=== PATIENT | male | born 1995 ===

== ENCOUNTER 2016-05-30 16:51 | Emergency (ER) | payer BC ==
[2016-05-30 16:59] VITALS: BP 162/74
--- NOTE | 2016-05-30 18:39 | ED ---
Throat Pain/Nasal Congestion - HPI Summary HPI Summary: 20 M presents with sore throat, cough, sinus congestion and headache for 5 days. He has a history of tonsil stones. His roommate was recently diagnosed with strept. He states he felt febrile yesterday. He admits to some nausea but denies any abdominal pain, vomiting or diarrhea. He denies any chest pain or SOB. He denies any difficulty swallowing or difficulty with his secretions. - History of Current Complaint Chief Complaint: EDUpperRespComplaint Time Seen by Provider: 05/30/16 17:49 - Allergies/Home Medications Allergies/Adverse Reactions: Allergies Allergy/AdvReac Type Severity Reaction Status Date / Time No Known Allergies Allergy Verified 05/30/16 16:59 Home Medications: Home Medications NK [No Home Medications Reported] 05/30/16 [History Confirmed 05/30/16] PMH/Surg Hx/FS Hx/Imm Hx Cardiovascular History: Denies: Hx Hypertension Respiratory History: Denies: Hx Asthma Infectious Disease History: Yes Infectious Disease History: Denies: Traveled Outside the [place] in Last 30 Days - Family History Known Family History: Negative: Cardiac Disease - Social History Alcohol Use: Rare Substance Use Type: Reports: None Smoking Status (MU): Unknown if Ever Smoked Review of Systems Negative: Fever Positive: Sore Throat, Nasal Discharge. Negative: Ear Ache Negative: Chest Pain Positive: Cough. Negative: Shortness Of Breath Positive: Nausea. Negative: Abdominal Pain, Vomiting All Other Systems Reviewed And Are Negative: Yes Physical Exam Triage Information Reviewed: Yes Vital Signs On Initial Exam: Initial Vitals Temp Pulse Resp BP Pulse Ox 99.5 F 96 17 162/74 99 05/30/16 16:57 05/30/16 16:57 05/30/16 16:57 05/30/16 16:57 05/30/16 16:57 Vital Signs Reviewed: Yes Appearance: Positive: Well-Appearing Skin: Positive: Warm, Dry Head/Face: Positive: Normal Head/Face Inspection Eyes: Positive: Normal, EOMI, MACHO, Conjunctiva Clear ENT: Positive: Normal ENT inspection, Pharyngeal erythema, TMs normal, Other - tonsil stone present on left tonsil. Negative: Tonsillar swelling, Tonsillar exudate, Trismus, Muffled/hoarse voice Neck: Positive: Supple, Nontender, No Lymphadenopathy Respiratory/Lung Sounds: Positive: Clear to Auscultation, Breath Sounds Present Cardiovascular: Positive: Normal, RRR Diagnostics - Vital Signs Vital Signs Temp Pulse Resp BP Pulse Ox 05/30/16 16:57 99.5 F 96 17 162/74 99 - Laboratory Lab Results: Lab Results 05/30/16 Range/Units 18:04 Group A Strep Rapid Negative (Negative) Lab Statement: Any lab studies that have been ordered have been reviewed, and results considered in the medical decision making process. EENT Course/Dx - Course Course Of Treatment: 20M presents with sore throat, productive cough, and sinus congestion for 5 days, roommate has strept. handling secretions well on exam, throat does not appear to be strept like has tonsil stone on left tonsil, no lymphadenopathy, lungs CTA do not suspect pneumonia, likely viral URI, rapid strept negative, explained results to patient, patient understands and agrees with plan - Differential Diagnoses Differential Diagnoses: Pharyngitis, URI/Bronchitis, Other - strept - Diagnoses Provider Diagnoses: Pharyngitis Discharge - Discharge Plan Condition: Good Disposition: HOME Patient Education Materials: Pharyngitis (ED) Referrals: [facility] HENRI Mulligan [Primary Care Provider] - Additional Instructions: Take Tylenol or ibuprofen for pain every 6 hours Use humidifier in room or can use warm water in bowls Can gargle salt water Can use cough drops or products such as cloraseptic spray Follow up with henri if no improvement in 5 days Return to ED if develop inability to swallow, difficulty breathing, or any new or worsening symptoms
== END 2016-05-30 18:59 | disposition home or self-care (01) ==
LOC: ED 16:51
DX: J02.9 Acute pharyngitis, unspecified (principal); R05 Cough; R11.0 Nausea
CPT/HCPCS: 87651; 99282

== ENCOUNTER 2016-12-10 21:37 | Emergency (ER) | payer SELFPAY ==
[2016-12-10 21:46] VITALS: BP 121/73
--- NOTE | 2016-12-10 21:47 | UC ---
Laceration HPI - HPI Summary HPI Summary: 21 YEAR OLD MALE PRESENTS WITH RIGHT THUMB PAD SUPERFICIAL LACERATION. - History Of Current Complaint Chief Complaint: UCLaceration Stated Complaint: THUMB LAC WC Time Seen by Provider: 12/10/16 21:46 Hx Obtained From: Patient Laceration Location: Finger - RIGHT THUMB Onset/Duration: Sudden Onset Severity: Moderate Pain Scale Used: 0-10 Numeric - 5 - Allergies/Home Medications Allergies/Adverse Reactions: Allergies Allergy/AdvReac Type Severity Reaction Status Date / Time No Known Allergies Allergy Verified 12/10/16 21:46 PMH/Surg Hx/FS Hx/Imm Hx Previously Healthy: Yes - Surgical History Surgical History: None - Family History Known Family History: Negative: Cardiac Disease - Social History Alcohol Use: Occasionally Substance Use Type: None Smoking Status (MU): Never Smoked Tobacco - Immunization History Most Recent Tetanus Shot: UNKNOWN Review of Systems Constitutional: Negative Skin: Other - RIGHT THUMB LACERATION Eyes: Negative ENT: Negative Respiratory: Negative Cardiovascular: Negative Gastrointestinal: Negative Genitourinary: Negative Motor: Negative Neurovascular: Negative Musculoskeletal: Negative Neurological: Negative Psychological: Negative All Other Systems Reviewed And Are Negative: Yes Physical Exam Triage Information Reviewed: Yes Appearance: Well-Appearing Vital Signs: Initial Vital Signs Temp 36.8 C 12/10/16 21:43 Pulse 78 12/10/16 21:43 Resp 16 12/10/16 21:43 BP 121/73 12/10/16 21:43 Pulse Ox 100 12/10/16 21:43 Eye Exam: Normal ENT Exam: Normal Dental Exam: Normal Neck exam: Normal Neck: Positive: 1 Respiratory Exam: Normal Cardiovascular Exam: Normal Abdominal Exam: Normal Musculoskeletal Exam: Normal Neurological Exam: Normal Psychological Exam: Normal Skin: Positive: Other - RIGHT THUMB LACERATION Laceration Repair - Laceration Repair 1 Description: Irregular Laceration Size After Repair: Length (cm) - 2.5 TO 5 CM Modified For Repair: Yes - SKIN FLAP Anesthesia Used: 1.0% Lido - 2 ML Cleansing Completed Via Routine Prep: Yes Irrigation With Pressure Irrigation Device: Yes Suture Type: Other - GEL FOAM, NO SUTURES OR STERISTRIPS Laceration Course/Dx - Differential Dx - Laceration/Wound Provider Diagnoses: RIGHT THUMB LACERATION Discharge - Discharge Plan Condition: Stable Disposition: HOME Prescriptions: DOXYcycline CAP(*) [DOXYcycline 100MG CAP(*)] 100 mg PO BID #14 cap Patient Education Materials: Laceration (ED), Finger Laceration (ED)
[2016-12-10] MEDS ORDERED: Lidocaine 1% MPF* 2 ML VIAL INJ ONE (21:51)
[2016-12-10] MEDS ORDERED: DOXYcycline CAP(*) 100 MG PO ONE (21:54)
[2016-12-10] MEDS ORDERED: Gelfoam 12-7 ADSORBABL SPONGE* 1 EA SPONGE ONE (22:06)
[2016-12-10] MEDS ORDERED: Gelfoam 12-7 ADSORBABL SPONGE* 1 EA SPONGE TOPICAL ONE (22:29)
== END 2016-12-10 22:40 | disposition home or self-care (01) ==
LOC: UCEAST 21:37
DX: S61.011A Laceration without foreign body of right thumb without damage to nail, initial encounter (principal); X58.XXXA Exposure to other specified factors, initial encounter; Y93.9 Activity, unspecified; Y92.9 Unspecified place or not applicable; Y99.0 Civilian activity done for income or pay
CPT/HCPCS: 99213; A9270-GY; G0463